=== PATIENT | female | born 1930 | race Caucasian/White ===

== ENCOUNTER → 2016-06-12 | Outpatient (REF) | payer MEDICARE ==
[~2016-06-12] MED LIST: ASPI81TA83 OR; COLA100C2 PO; DULCOLAX PR; FERR325T PO; MACROBID PO; MAGN500T2 PO; MILKSUS PO; MIRALEX PO; OXYB5TAB5 OR; PLAV75TA2 OR; VITA500C PO; [UNRECOGNIZED DRUG - REMARK] OR
[2016-06-12 21:10] LABS: MEAN CORPUSCULAR HEMOGLOBIN 31.3 pg (27.0-33.0); MEAN CORPUSCULAR HGB CONC 33.2 g/dl (32.0-36.5); MEAN CORPUSCULAR VOLUME 94.3 fl (80.0-96.0); WHITE BLOOD COUNT 4.8 K/mm3 (4.0-10.0)
[2016-06-12 21:39] LABS: ALBUMIN 3.6 GM/DL (3.2-5.2); ALBUMIN/GLOBULIN RATIO 1.06 (1.00-1.93); ALKALINE PHOSPHATASE 102 U/L (45-117); ALT/SGPT 16 U/L (12-78); ANION GAP 4 MEQ/L (8-16); AST/SGOT 16 U/L (15-37); BILIRUBIN,TOTAL 0.3 MG/DL (0.2-1.0); BLOOD UREA NITROGEN 18 MG/DL (7-18); CALCIUM LEVEL 8.7 MG/DL (8.8-10.2); CARBON DIOXIDE LEVEL 30 MEQ/L (21-32); CHLORIDE LEVEL 105 MEQ/L (98-107); CREATININE FOR GFR 0.72 MG/DL (0.55-1.02); GLOMERULAR FILTRATION RATE > 60.0 (>32); GLUCOSE, FASTING 91 MG/DL (83-110); SODIUM LEVEL 139 MEQ/L (136-145)
[2016-06-12 21:48] LABS: POTASSIUM SERUM 5.3 MEQ/L (3.5-5.1)
== END ==
LOC: M SFHCLERA 17:33
PROVIDERS: ATTEND Physician Assistant
DX: R55 Syncope and collapse (principal); M17.12 Unilateral primary osteoarthritis, left knee; Z79.1 Long term (current) use of non-steroidal anti-inflammatories (NSAID); Z79.899 Other long term (current) drug therapy

== ENCOUNTER → 2016-06-12 | Outpatient (CLI) | payer MEDICARE ==
--- NOTE | 2016-06-12 18:48 | REP ---
Left knee five views: There are no comparisons. The patella is subluxed laterally. I suspect this is chronic. There is an old healed fracture through the metaphysis of the tibia. 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 I suspect there is an old healed fracture of the proximal fibula. 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 There is no joint effusion. Signed by Navin Ramirez MD 06/12/2016 06:39 P
== END ==
LOC: M LRY 17:40
PROVIDERS: ATTEND Physician Assistant
DX: M17.12 Unilateral primary osteoarthritis, left knee (principal); R55 Syncope and collapse; Z79.1 Long term (current) use of non-steroidal anti-inflammatories (NSAID); Z79.899 Other long term (current) drug therapy

== ENCOUNTER → 2016-10-08 | Outpatient (CLI) | payer MEDICARE ==
[~2016-10-08] MED LIST changes: +COLA100C5 PO; +IBUP-1022 PO; +SENN8.6C PO
--- NOTE | 2016-10-08 15:07 | REP ---
CHEST, TWO VIEWS: HISTORY: Smoking history. COMPARISON: 10/04/2011 The lungs are hyperinflated. An increase in interstitial markings is present in the lungs. Bilateral apical pleural thickening is present. The heart is normal in size. Calcified lymph nodes are present in the mediastinum. The pulmonary vasculature is normal in appearance. The bony structure is osteopenic. IMPRESSION: 1. COPD. 2. Old granulomatous disease. Signed by Gilbert Hi MD 10/08/2016 03:16 P
[2016-10-08 16:07] LABS: ANION GAP 7 MEQ/L (8-16); BLOOD UREA NITROGEN 16 MG/DL (7-18); CALCIUM LEVEL 8.7 MG/DL (8.8-10.2); CARBON DIOXIDE LEVEL 30 MEQ/L (21-32); CHLORIDE LEVEL 105 MEQ/L (98-107); CREATININE FOR GFR 0.75 MG/DL (0.55-1.02); GLOMERULAR FILTRATION RATE > 60.0 (>32); GLUCOSE, FASTING 103 MG/DL (83-110); POTASSIUM SERUM 4.4 MEQ/L (3.5-5.1); SODIUM LEVEL 142 MEQ/L (136-145)
--- NOTE | 2016-10-10 21:47 | ECGEPIP ---
Stationary ECG Study [facility] Test Date: 2016-10-08 Pat Name: ALEXANDRA CARR Department: Room: - Gender: F Vp Publisher Development: : [id number] Requested By: DALE Ansari Order Number: [id number] Reading MD: Iker Herrera Measurements Intervals [place] Rate: 70 P: 98 VA: 155 QRS: -15 QRSD: 80 T: 50 QT: 358 QTc: 388 Interpretive Statements SINUS RHYTHM COMPARED TO THE LAST 2 TRACINGS IN THE SYSTEM, NO SIGNIFICANT CHANGES. ARTIFACT NOTED ON THE PRECORDIAL LEADS V4 AND V5 Electronically Signed On 10-10-2016 21:47:18 EDT by Iker Herrera
== END ==
LOC: M LAB 14:01
PROVIDERS: ATTEND Ophthalmology
DX: I10 Essential (primary) hypertension (principal); J44.9 Chronic obstructive pulmonary disease, unspecified

== ENCOUNTER → 2016-10-10 | Outpatient (REF) | payer MEDICARE | LOC: M SFHCLERA 09:19 | PROVIDERS: ATTEND Physician Assistant | DX: N39.0 Urinary tract infection, site not specified (principal) ==

== ENCOUNTER → 2016-11-15 | Day surgery (SDC) | payer MEDICARE ==
[~2016-11-15] VITALS: Ht 160 cm; Wt 54.4 kg
[~2016-11-15] MED LIST changes: +CEFUROXIME 1MG/0.1ML INTRACAMERAL INJ As Ordered ONE; +LR 1,000 ML IV SCH; +MIDAZOLAM INJ 2 MG/2 ML VIAL (J2250) As Ordered ONE; +OFLOXACIN 0.3 % (OCUFLOX) OPTH SOL 5ML OD ONE; +PHENYLEPHRINE 2.5% OPHTH SOL 2ML OD ONE; +PROPARACAINE 0.5% OPHTH SOL 15ML OD ONE; +TROPICAMIDE 1% OPHTH SOLN 2ML OD ONE; +fentaNYL 100 MCG/2 ML INJECTION (J3010) As Ordered ONE
[2016-11-15 13:30] VITALS: BP 142/76
--- NOTE | 2016-11-15 23:24 | RO ---
DATE OF PROCEDURE: 11/15/2016 PREOPERATIVE DIAGNOSIS: Visually significant nuclear sclerotic cataract right eye. POSTOPERATIVE DIAGNOSIS: Visually significant nuclear sclerotic cataract right eye. PROCEDURE: Cataract extraction with use of phacoemulsification, and placement of intraocular lens, AU00T0, 24.0 diopters, right eye. SURGEON: Serjio Fabian DO GROUNDSMAN: ANESTHESIA: Local with monitored anesthesia care (MAC). COMPLICATIONS: None. POSTOPERATIVE CONDITION: Stable. INDICATION FOR SURGERY: Blurred vision right eye affecting patient's activities of daily living. DESCRIPTION OF PROCEDURE: The patient was seen in the preoperative area and properly identified. The correct operative eye was identified and marked. Attention was turned to that eye. The patient received topical antibiotics in the preoperative area. The patient then received topical dilating drops consisting of Tropicamide and Phenylephrine. The patient was then transferred to the operating room. The correct side was re-identified. The patient received topical anesthetics and antibiotics on the surface of the eye. The eye was prepped and draped in a sterile fashion. The upper and lower eyelids were isolated with Tegaderm tape, and the lids were held open with an adjustable speculum. Using a sideport blade, a paracentesis incision was made. Intraocular preservative-free lidocaine was then injected into the anterior chamber. Viscoelastic was then injected into the anterior chamber through the paracentesis. Using a 2.4 mm sharp-tipped keratome, the anterior chamber was entered via a temporal clear corneal incision. A continuous curvilinear capsulorrhexis was created with the aid of a 26g cystotome and utrata forceps. Hydrodissection was performed with balanced salt solution (BSS) on a blunt cannula until the nucleus was freely mobile. The crystalline lens was phacoemulsified and aspirated. Additional cohesive viscoelastic was placed into the capsular bag to deepen it. An AU00T0, 24.0 diopters lens was placed into the capsular bag and confirmed by visualizing the continuous curvilinear capsulorrhexis. Additional irrigation and aspiration was used to remove cortical material and remaining viscoelastic. The clear corneal incision was hydrated with BSS on a blunt cannula. The lens was well positioned. The incisions were then tested for leaks and found to be negative. The eye was then palpated for appropriate pressure and adjusted accordingly with BSS. After BSS was used to hydrate the clear corneal incision, ReSure sealant was placed over it to ensure a watertight incision. The eyelid speculum was carefully removed. A shield was placed. The patient tolerated the procedure well and was discharged to the recovery unit in a stable condition. LINO
== END | disposition home or self-care (01) ==
LOC: M SDC 11:15
PROVIDERS: ATTEND Ophthalmology
DX: H25.11 Age-related nuclear cataract, right eye (principal); I10 Essential (primary) hypertension; K59.09 Other constipation; M19.90 Unspecified osteoarthritis, unspecified site; Z78.0 Asymptomatic menopausal state; Z87.440 Personal history of urinary (tract) infections; H54.42 Blindness, left eye, normal vision right eye; Z87.891 Personal history of nicotine dependence; Z88.2 Allergy status to sulfonamides; Z88.1 Allergy status to other antibiotic agents
CPT/HCPCS: 66984; J2250; J3010; V2632

== ENCOUNTER → 2017-07-30 | Outpatient (CLI) | payer MEDICARE | LOC: M LRY 11:56 | DX: R33.9 Retention of urine, unspecified (principal) | CPT/HCPCS: 76857; 80048 ==

== ENCOUNTER → 2017-07-30 | Outpatient (REF) | payer MEDICARE ==
[2017-07-30 18:55] LABS: ANION GAP 7 MEQ/L (8-16); BLOOD UREA NITROGEN 14 MG/DL (7-18); CALCIUM LEVEL 8.4 MG/DL (8.8-10.2); CARBON DIOXIDE LEVEL 28 MEQ/L (21-32); CHLORIDE LEVEL 107 MEQ/L (98-107); CREATININE FOR GFR 0.68 MG/DL (0.55-1.30); GLOMERULAR FILTRATION RATE > 60.0 (>32); GLUCOSE, FASTING 84 MG/DL (70-100); POTASSIUM SERUM 4.4 MEQ/L (3.5-5.1); SODIUM LEVEL 142 MEQ/L (136-145)
== END ==
LOC: M SFHCLERA 11:43
DX: R33.9 Retention of urine, unspecified (principal)
CPT/HCPCS: 80048

== ENCOUNTER 2017-08-08 10:30 | Inpatient (IN) | payer MEDICARE ==
[2017-08-08 11:28] LABS: BASO % 0.1 % (0.0-1.0); EOS % 0.1 % (0.0-3.0); HEMATOCRIT 39.8 % (36.0-47.0); HEMOGLOBIN 13.4 g/dl (12.0-15.5); IMMATURE GRANULOCYTE % 0.9 % (0-3.0); LYMPH # 1.1 10^3/uL (1.5-4.5); LYMPH % 7.7 % (24.0-44.0); MEAN CORPUSCULAR HEMOGLOBIN 31.4 pg (27.0-33.0); MEAN CORPUSCULAR HGB CONC 33.7 g/dl (32.0-36.5); MEAN CORPUSCULAR VOLUME 93.2 fl (80.0-96.0); MONO # 0.9 10^3/uL (0.0-0.8); NEUTROPHILS # 12.3 10^3/uL (1.8-7.7); NEUTROPHILS % 85.2 % (36.0-66.0); PLATELET COUNT, AUTOMATED 138 10^3/uL (150-450); RED BLOOD COUNT 4.27 10^6/uL (4.00-5.40); RED CELL DISTRIBUTION WIDTH 12.1 % (11.5-14.5); WHITE BLOOD COUNT 14.4 10^3/uL (4.0-10.0)
[2017-08-08 11:37] LABS: INR 1.05; PROTHROMBIN TIME 13.8 SECONDS (12.4-14.5)
[2017-08-08 11:38] LABS: PARTIAL THROMBOPLASTIN TIME 29.8 SECONDS (26.8-37.9)
[2017-08-08 12:22] LABS: ANION GAP 8 MEQ/L (8-16); BLOOD UREA NITROGEN 20 MG/DL (7-18); CALCIUM LEVEL 8.5 MG/DL (8.8-10.2); CARBON DIOXIDE LEVEL 26 MEQ/L (21-32); CHLORIDE LEVEL 103 MEQ/L (98-107); CREATININE FOR GFR 0.86 MG/DL (0.55-1.30); GLOMERULAR FILTRATION RATE > 60.0 (>32); GLUCOSE, FASTING 95 MG/DL (70-100); POTASSIUM SERUM 4.1 MEQ/L (3.5-5.1); SODIUM LEVEL 137 MEQ/L (136-145)
[2017-08-08] MEDS: NS 1,000 ML IV ×3 (12:30→21:38)
[2017-08-08] MEDS: MORPHINE 2 MG/ML 1ML SYRINGE (J2270) IV (13:57)
[2017-08-08 14:08] LABS: AMORPHOUS SEDIMENT RFX SMALL (NEGATIVE); KETONE, URINE AUTO RFX 1+ mg/dL (NEGATIVE); MUCUS, URINE RFX SMALL (NEGATIVE); NITRITE, URINE AUTO RFX NEGATIVE (NEGATIVE); RBC, URINE AUTO RFX 16 /HPF (0-3); SPECIFIC GRAVITY UR AUTO RFX 1.011 (1.002-1.035); SQUAM EPITHELIAL CELL UR AURFX 8 /HPF (0-6)
[2017-08-08 14:10] LABS: LEUKOCYTE ESTERASE UR AUTO RFX 3+ (NEGATIVE); WBC, URINE AUTO RFX TNTC /HPF (0-3)
[2017-08-08] MEDS: cefTRIAXone SOD 1 GM in D5W MINI-BAG PLUS 50 ML IV (15:02)
[2017-08-08] MEDS ORDERED: ACETAMINOPHEN TAB 650MG DOSE (2X325MG) PO (16:15)
[2017-08-08] MEDS: ACETAMINOPH W/CODEINE #3 TAB UD PO (17:42)
[2017-08-08] MEDS: IBUPROFEN 600 MG TAB PO (19:54)
[2017-08-09] MEDS: NS 1,000 ML IV ×2 (01:38→03:42)
[2017-08-09] MEDS: ACETAMINOPH W/CODEINE #3 TAB UD PO (01:52)
[2017-08-09] MEDS: IBUPROFEN 600 MG TAB PO (02:44)
[2017-08-09] MEDS: MORPHINE 4 MG/ML 1ML VIAL/SYRINGE (J2270) IV (03:43)
[2017-08-09 06:02] LABS: HEMATOCRIT 33.4 % (36.0-47.0); MEAN CORPUSCULAR HEMOGLOBIN 31.6 pg (27.0-33.0); MEAN CORPUSCULAR HGB CONC 34.1 g/dl (32.0-36.5); MEAN CORPUSCULAR VOLUME 92.5 fl (80.0-96.0); RED BLOOD COUNT 3.61 10^6/uL (4.00-5.40); RED CELL DISTRIBUTION WIDTH 12.3 % (11.5-14.5); WHITE BLOOD COUNT 10.4 10^3/uL (4.0-10.0)
[2017-08-09 06:22] LABS: ANION GAP 8 MEQ/L (8-16); BLOOD UREA NITROGEN 21 MG/DL (7-18); CALCIUM LEVEL 7.6 MG/DL (8.8-10.2); CARBON DIOXIDE LEVEL 22 MEQ/L (21-32); CHLORIDE LEVEL 108 MEQ/L (98-107); CREATININE FOR GFR 0.66 MG/DL (0.55-1.30); GLOMERULAR FILTRATION RATE > 60.0 (>32); GLUCOSE, FASTING 84 MG/DL (70-100); POTASSIUM SERUM 3.6 MEQ/L (3.5-5.1); SODIUM LEVEL 138 MEQ/L (136-145)
[2017-08-09 06:31] LABS: HEMOGLOBIN 11.4 g/dl (12.0-15.5); IMMATURE PLATELET FRACTION % 6.3 % (0.0-9.6); PLATELET COUNT, AUTOMATED 95 10^3/uL (150-450)
[2017-08-09 09:08] LABS: LYMPHOCYTES 3 % (16-52); NEUTROPHILS 97 % (35-75)
[2017-08-09 09:09] LABS: PLATELET ESTIMATE DECREASED (NORMAL)
[2017-08-09 12:06] LABS: PLATELET F 95
[2017-08-09 12:07] LABS: DIFF SLIDE NUMBER 80
[2017-08-09] MEDS: DOCUSATE SODIUM 100 MG CAP PO (12:45)
[2017-08-09] MEDS: SENNA 8.6 MG TAB (SENOKOT) PO ×2 (12:46→21:03)
[2017-08-09] MEDS: traMADol 50 MG TAB PO ×2 (12:47→21:02)
[2017-08-10] MEDS: SENNA 8.6 MG TAB (SENOKOT) PO (10:16)
[2017-08-10] MEDS: DOCUSATE SODIUM 100 MG CAP PO (10:17)
[2017-08-10] MEDS: traMADol 50 MG TAB PO ×2 (10:18→21:27)
[2017-08-10] MEDS: BISACODYL 5 MG TAB PO (15:39)
[2017-08-10] MEDS: FLEET ENEMA PR (15:40)
[2017-08-10] MEDS: IBUPROFEN 600 MG TAB PO (15:57)
[2017-08-10] MEDS: SENOKOT S TAB PO (21:26)
[2017-08-11] MEDS: LACTULOSE 20 GM/30 ML SYRUP UD PO ×2 (06:10→10:10)
[2017-08-11] MEDS: BISACODYL 5 MG TAB PO (10:11)
[2017-08-11] MEDS: SENOKOT S TAB PO ×2 (10:11→20:39)
[2017-08-11] MEDS: traMADol 50 MG TAB PO ×2 (10:12→20:39)
[2017-08-11] MEDS ORDERED: BISACODYL 10 MG SUPP PR (11:30)
[2017-08-11] MEDS: tiZANidine 4 MG TAB PO (11:56)
[2017-08-12] MEDS: IBUPROFEN 600 MG TAB PO (00:10)
[2017-08-12] MEDS: BISACODYL 5 MG TAB PO (09:01)
[2017-08-12] MEDS: traMADol 50 MG TAB PO ×2 (09:02→21:11)
[2017-08-12] MEDS: SENOKOT S TAB PO ×2 (09:02→21:10)
[2017-08-13] MEDS: traMADol 50 MG TAB PO (09:44)
[2017-08-13] MEDS: BISACODYL 5 MG TAB PO (09:44)
[2017-08-13] MEDS: SENOKOT S TAB PO (09:44)
== END 2017-08-13 13:55 | disposition home health service (06) | DRG 554 ==
LOC: M ED 10:30 → M ED INP 17:16 → M MSPAV 20:51
DX: M16.0 Bilateral primary osteoarthritis of hip (principal); K59.00 Constipation, unspecified; N81.10 Cystocele, unspecified; R13.10 Dysphagia, unspecified; E86.0 Dehydration; Z88.2 Allergy status to sulfonamides; R32 Unspecified urinary incontinence; F03.90 Unspecified dementia, unspecified severity, without behavioral disturbance, psychotic disturbance, mood disturbance, and anxiety; R82.71 Bacteriuria; M79.651 Pain in right thigh; M79.652 Pain in left thigh; I48.91 Unspecified atrial fibrillation

== ENCOUNTER → 2017-12-03 | Outpatient (REF) | payer MEDICARE | LOC: M LAB REF 18:51 | DX: C44.519 Basal cell carcinoma of skin of other part of trunk (principal) | CPT/HCPCS: 88305 ==

== ENCOUNTER → 2017-12-31 | Outpatient (REF) | payer MEDICARE | LOC: M LAB REF 17:58 | DX: C44.519 Basal cell carcinoma of skin of other part of trunk (principal); C44.509 Unspecified malignant neoplasm of skin of other part of trunk (principal) | CPT/HCPCS: 88305 ==

== ENCOUNTER → 2018-01-08 | Outpatient (REF) | payer MEDICARE ==
[2018-01-08 14:29] LABS: BASO # 0.1 10^3/uL (0.0-0.2); BASO % 1.2 % (0.0-1.0); EOS # 0.1 10^3/uL (0.0-0.50); EOS % 1.9 % (0.0-3.0); HEMATOCRIT 39.2 % (36.0-47.0); HEMOGLOBIN 13.2 g/dl (12.0-15.5); IMMATURE GRANULOCYTE % 0.2 % (0-3.0); LYMPH # 1.6 10^3/uL (1.5-4.5); LYMPH % 29.8 % (24.0-44.0); MEAN CORPUSCULAR HEMOGLOBIN 32.1 pg (27.0-33.0); MEAN CORPUSCULAR HGB CONC 33.7 g/dl (32.0-36.5); MEAN CORPUSCULAR VOLUME 95.4 fl (80.0-96.0); MONO # 0.5 10^3/uL (0.0-0.8); MONO % 10.4 % (0.0-5.0); NEUTROPHILS # 2.9 10^3/uL (1.8-7.7); NEUTROPHILS % 56.5 % (36.0-66.0); PLATELET COUNT, AUTOMATED 171 10^3/uL (150-450); RED BLOOD COUNT 4.11 10^6/uL (4.00-5.40); RED CELL DISTRIBUTION WIDTH 12.1 % (11.5-14.5); WHITE BLOOD COUNT 5.2 10^3/uL (4.0-10.0)
[2018-01-08 14:47] LABS: ALBUMIN 4.1 GM/DL (3.2-5.2); ALBUMIN/GLOBULIN RATIO 1.17 (1.00-1.93); ALKALINE PHOSPHATASE 80 U/L (45-117); ALT/SGPT 16 U/L (12-78); ANION GAP 9 MEQ/L (8-16); AST/SGOT 19 U/L (7-37); BILIRUBIN,TOTAL 0.5 MG/DL (0.2-1.0); BLOOD UREA NITROGEN 15 MG/DL (7-18); CALCIUM LEVEL 9.1 MG/DL (8.8-10.2); CARBON DIOXIDE LEVEL 28 MEQ/L (21-32); CHLORIDE LEVEL 106 MEQ/L (98-107); CHOLESTEROL LEVEL 176 MG/DL (<200); CREATININE FOR GFR 0.75 MG/DL (0.55-1.30); FREE T4 1.24 NG/DL (0.76-1.46); GLOMERULAR FILTRATION RATE > 60.0 (>32); GLUCOSE, FASTING 67 MG/DL (70-100); HDL CHOLESTEROL 85 MG/DL (>40); LDL CHOLESTEROL 76 MG/DL (<100); NON-HDL-C 91 MG/DL; POTASSIUM SERUM 3.8 MEQ/L (3.5-5.1); SODIUM LEVEL 143 MEQ/L (136-145); TOTAL PROTEIN 7.6 GM/DL (6.4-8.2); TRIGLYCERIDES LEVEL 74 MG/DL (<150)
[2018-01-08 14:49] LABS: TOTAL 25(OH) VITAMIN D 10.9 NG/ML (30.0-100.0)
== END ==
LOC: M SFHCSACK 10:16
DX: I10 Essential (primary) hypertension (principal); Z13.220 Encounter for screening for lipoid disorders; Z13.21 Encounter for screening for nutritional disorder; E11.9 Type 2 diabetes mellitus without complications; Z86.79 Personal history of other diseases of the circulatory system; F34.1 Dysthymic disorder; K59.00 Constipation, unspecified; G89.29 Other chronic pain; M25.562 Pain in left knee; M25.561 Pain in right knee
CPT/HCPCS: 84443

== ENCOUNTER → 2018-04-28 | Outpatient (REF) | payer MEDICARE ==
[~2018-04-28] MED LIST changes: +ACETAMINOPHEN-COD PO; -CEFUROXIME 1MG/0.1ML INTRACAMERAL INJ As Ordered ONE; -LR 1,000 ML IV SCH; -MIDAZOLAM INJ 2 MG/2 ML VIAL (J2250) As Ordered ONE; -OFLOXACIN 0.3 % (OCUFLOX) OPTH SOL 5ML OD ONE; -PHENYLEPHRINE 2.5% OPHTH SOL 2ML OD ONE; -PROPARACAINE 0.5% OPHTH SOL 15ML OD ONE; -TROPICAMIDE 1% OPHTH SOLN 2ML OD ONE; +TYLETAB14 PO; -fentaNYL 100 MCG/2 ML INJECTION (J3010) As Ordered ONE
[2018-04-28 22:20] LABS: APPEARANCE, URINE CLEAR (CLEAR); BACTERIA, URINE AUTO 1+ (NEGATIVE); BILIRUBIN, URINE AUTO NEGATIVE (NEGATIVE); BLOOD, URINE BLOOD NEGATIVE (NEGATIVE); COLOR, URINE AMBER (YELLOW); GLUCOSE, URINE (UA) AUTO NEGATIVE (NEGATIVE); KETONE, URINE AUTO TRACE mg/dL (NEGATIVE); LEUKOCYTE ESTERASE, URINE AUTO 2+ (NEGATIVE); NITRITE, URINE AUTO POSITIVE (NEGATIVE); PROTEIN, URINE AUTO NEGATIVE (NEGATIVE); RBC, URINE AUTO 4 /HPF (0-3); SPECIFIC GRAVITY URINE AUTO 1.021 (1.002-1.035); SQUAMOUS EPITHELIAL CELL UR AU 3 /HPF (0-6); WBC, URINE AUTO 30 /HPF (0-3)
== END ==
LOC: M LAB REF 11:19
PROVIDERS: ATTEND Physician Assistant Medical
DX: N39.0 Urinary tract infection, site not specified (principal)

== ENCOUNTER → 2018-05-23 | Outpatient (REF) | payer MEDICARE | LOC: M SFHCSACK 13:28 | PROVIDERS: ATTEND Physician Assistant | DX: R30.0 Dysuria (principal) ==